=== PATIENT | male | born 1950 | race Caucasian/White ===

== ENCOUNTER 2020-08-30 15:06 | Inpatient (IN) ==
[2020-08-30] MEDS ORDERED: Ondansetron 4 MG/2 ML VIAL IVP PRN (19:57)
[2020-08-30] MEDS ORDERED: Naloxone 0.4 MG/ML INJ IVP PRN (19:57)
[2020-08-30] MEDS ORDERED: Acetaminophen 325 MG TABLET PO PRN (19:57)
[2020-08-30 20:46] LABS: Basophils # 0.1 K/mcL (0.0-0.2); Basophils % 0.5 %; Eosinophils # 0.1 K/mcL (0.0-0.6); Eosinophils % 0.5 %; Hematocrit 30.2 % (37.5-50.1); Hemoglobin 9.5 g/dL (12.9-16.9); Immature Granulocytes % 0.5 % (0-4); Lymphocytes # 1.8 K/mcL (0.6-4.6); Lymphocytes % 14.2 %; Mean Corpuscular HGB Conc 31.5 g/dL (31.6-35.5); Mean Corpuscular Hemoglobin 26.1 pg (28.0-33.3); Mean Platelet Volume 9.2 fL (9.4-12.4); Monocytes # 0.9 K/mcL (0.0-1.3); Monocytes % 6.9 %; Neutrophils # 9.9 K/mcL (1.6-8.9); Platelet Count 342 K/mcL (140-400); Red Blood Count 3.64 M/mcL (4.19-5.50); Red Cell Distribution Width 15.4 % (11.5-14.5); Segmented Neutrophils % 77.4 %; White Blood Count 12.7 K/mcL (4.3-11.1)
[2020-08-30 20:54] LABS: INR 1.8; Prothrombin Time 20.5 Seconds (9.4-12.1)
[2020-08-30 21:04] LABS: Calcium 8.1 mg/dL (8.6-10.3); Magnesium 2.1 mg/dL (1.6-2.6); Potassium 3.7 mEq/L (3.5-5.1)
[2020-08-30] MEDS: *HR* OxyCODONE Immed Rel 5 MG TABLET PO PRN (22:36)
[2020-08-30] MEDS: 0.9 % Sodium Chloride 1,000 ML IVC SCH (22:39)
[2020-08-30] MEDS: cefTRIAXone 1,000 MG in 0.9 % Sodium Chloride Mini Bag 100 ML IVPB SCH (22:55)
[2020-08-31 00:07] LABS: Adenovirus Not Detected (Not Detect); Bordetella Pertussis Not Detected (Not Detect); Chlamydophila pneumoniae Not Detected (Not Detect); Coronavirus 229E Not Detected (Not Detect); Coronavirus HKU1 Not Detected (Not Detect); Coronavirus NL63 Not Detected (Not Detect); Coronavirus OC43 Not Detected (Not Detect); Human Metapneumovirus Not Detected (Not Detect); Human Rhinovirus/Enterovirus Not Detected (Not Detect); Influenza A Subtype 2009 H1 Not Detected (Not Detect); Influenza B Not Detected (Not Detect); Mycoplasma pneumoniae Not Detected (Not Detect); Parainfluenza Virus 1 Not Detected (Not Detect); Parainfluenza Virus 2 Not Detected (Not Detect); Parainfluenza Virus 3 Not Detected (Not Detect); Parainfluenza Virus 4 Not Detected (Not Detect); Respiratory Syncytial Virus Not Detected (Not Detect); SARS-CoV-2 Not Detected (Not Detect)
[2020-08-31 00:36] LABS: Basophils # 0.1 K/mcL (0.0-0.2); Basophils % 0.4 %; Eosinophils # 0.1 K/mcL (0.0-0.6); Eosinophils % 0.9 %; Hematocrit 30.4 % (37.5-50.1); Hemoglobin 9.5 g/dL (12.9-16.9); Immature Granulocytes % 0.5 % (0-4); Lymphocytes # 1.6 K/mcL (0.6-4.6); Lymphocytes % 13.8 %; Mean Corpuscular HGB Conc 31.3 g/dL (31.6-35.5); Mean Corpuscular Hemoglobin 26.2 pg (28.0-33.3); Mean Platelet Volume 9.1 fL (9.4-12.4); Monocytes # 0.8 K/mcL (0.0-1.3); Monocytes % 6.8 %; Neutrophils # 9.1 K/mcL (1.6-8.9); Platelet Count 331 K/mcL (140-400); Red Blood Count 3.62 M/mcL (4.19-5.50); Red Cell Distribution Width 15.3 % (11.5-14.5); Segmented Neutrophils % 77.6 %; White Blood Count 11.7 K/mcL (4.3-11.1)
[2020-08-31 00:43] LABS: Calcium 8.2 mg/dL (8.6-10.3); Potassium 3.8 mEq/L (3.5-5.1)
[2020-08-31] MEDS: *HR* OxyCODONE Immed Rel 5 MG TABLET PO PRN ×2 (05:57→19:28)
[2020-08-31 06:52] LABS: Bilirubin,Urine Negative (Negative); Blood,Urine Negative (Negative); Clarity,Urine Clear (Clear); Color,Urine Yellow (Yellow); Glucose,Urine (UA) Normal (Normal); Ketones,Urine Negative (Negative); Leukocyte Esterase,Urine Negative (Negative); Mucus,Urine Few per lpf (None-Few); Nitrite,Urine Negative (Negative); Protein,Urine 70 mg/dL (Neg-Trace); RBC,Urine 0-3 per hpf (0-3); Specific Gravity,Urine 1.021 (1.010-1.025); Squamous Epithelial Cell,Urine Few per hpf (None-Few); Urobilinogen,Urine Normal (Normal); WBC,Urine 0-3 per hpf (0-3)
[2020-08-31] MEDS: cefTRIAXone 1,000 MG in 0.9 % Sodium Chloride Mini Bag 100 ML IVPB SCH (08:32)
[2020-08-31] MEDS: 0.9 % Sodium Chloride 1,000 ML IVC SCH ×2 (08:42→15:03)
[2020-08-31] MEDS ORDERED: Nicotine 14 MG PATCH.TD24 TD SCH (09:00)
[2020-08-31] MEDS ORDERED: *HR* OxyCODONE Immed Rel 5 MG TABLET PO PRN (09:17)
[2020-08-31] MEDS ORDERED: Ondansetron 4 MG/2 ML VIAL IVP PRN ×3 (11:19→14:15)
[2020-08-31] MEDS ORDERED: Ipratropium Neb 0.5 MG NEBULIZER IH PRN ×2 (11:19→14:15)
[2020-08-31] MEDS ORDERED: *HR* FentaNYL (PF) 100 MCG/2 ML VIAL IVP PRN ×2 (11:19→14:15)
[2020-08-31] MEDS ORDERED: Nitroglycerin 0.4 MG TAB.SUBL SL PRN ×2 (11:19→14:15)
[2020-08-31] MEDS ORDERED: Albuterol 2.5 MG/3 ML NEBULIZER IH PRN ×2 (11:19→14:15)
[2020-08-31] MEDS ORDERED: Naloxone 0.4 MG/ML INJ IVP PRN ×3 (11:19→14:15)
[2020-08-31] MEDS ORDERED: *HR* Propofol 200 MG/20 ML VIAL IVP ONE (11:34)
[2020-08-31] MEDS ORDERED: Lidocaine -MPF 2% 2 ML VIAL ONE (11:35)
[2020-08-31] MEDS ORDERED: *HR* Succinylcholine 200 MG/10 ML VIAL IVP ONE (11:36)
[2020-08-31] MEDS ORDERED: Isovue-300 50ML VIAL ONE (11:48)
[2020-08-31] MEDS ORDERED: EPHEDrine 50 MG/ML VIAL ONE (11:50)
[2020-08-31] MEDS ORDERED: Ipratropium/Albuterol Neb 3 ML IH SCH (12:00)
[2020-08-31] MEDS ORDERED: *HR* FentaNYL (PF) 100 MCG/2 ML VIAL ONE (12:55)
[2020-08-31] MEDS ORDERED: Acetaminophen 325 MG TABLET PO PRN (14:15)
[2020-08-31] MEDS: Ipratropium/Albuterol Neb 3 ML IH SCH ×3 (16:22→23:08)
[2020-09-01] MEDS: 0.9 % Sodium Chloride 1,000 ML IVC SCH (01:40)
[2020-09-01] MEDS: Ipratropium/Albuterol Neb 3 ML IH SCH ×5 (03:12→20:24)
[2020-09-01 06:07] LABS: Basophils % 0.1 %; Hematocrit 27.5 % (37.5-50.1); Hemoglobin 8.5 g/dL (12.9-16.9); Immature Granulocytes % 0.9 % (0-4); Lymphocytes # 0.9 K/mcL (0.6-4.6); Lymphocytes % 5.1 %; Mean Corpuscular HGB Conc 30.9 g/dL (31.6-35.5); Mean Corpuscular Hemoglobin 25.8 pg (28.0-33.3); Mean Corpuscular Volume 83.6 fL (83.0-100.0); Mean Platelet Volume 9.6 fL (9.4-12.4); Monocytes # 0.8 K/mcL (0.0-1.3); Monocytes % 4.9 %; Neutrophils # 15.1 K/mcL (1.6-8.9); Platelet Count 312 K/mcL (140-400); Red Blood Count 3.29 M/mcL (4.19-5.50); Red Cell Distribution Width 15.3 % (11.5-14.5)
[2020-09-01 06:31] LABS: Magnesium 2.1 mg/dL (1.6-2.6); Potassium 4.1 mEq/L (3.5-5.1)
[2020-09-01] MEDS: cefTRIAXone 1,000 MG in 0.9 % Sodium Chloride Mini Bag 100 ML IVPB SCH (08:32)
[2020-09-01] MEDS: Nicotine 14 MG PATCH.TD24 TD SCH (08:33)
[2020-09-01 09:30] LABS: ABG Base Excess 2 mEq/L (-2 to 3); ABG HCO3 27 mEq/L (21-27); ABG Oxygen Saturation 93 % (95-98); ABG PCO2 46 mmHg (35-45); ABG PH 7.38 pH Units (7.32-7.45); ABG PO2 69 mmHg (85-104); ABG TCO2 29 mEq/L (20-26)
[2020-09-01] MEDS ORDERED: Albuterol 2.5 MG/3 ML NEBULIZER IH SCH ×2 (11:30→15:00)
[2020-09-01] MEDS: Apixaban 5 MG TABLET PO SCH ×2 (13:10→20:17)
[2020-09-01] MEDS: Finasteride 5 MG TABLET PO SCH (13:10)
[2020-09-01] MEDS: Aspirin Enteric Coated 81 MG Tablet PO SCH (13:10)
[2020-09-01] MEDS: Pregabalin 50 MG CAPSULE PO SCH (20:18)
[2020-09-01] MEDS: Budesonide Neb 0.5 MG/2 ML IH SCH (20:24)
[2020-09-02] MEDS: Ipratropium/Albuterol Neb 3 ML IH SCH ×4 (00:11→11:14)
[2020-09-02 04:49] LABS: Basophils % 0.2 %; Eosinophils % 0.1 %; Hematocrit 24.3 % (37.5-50.1); Hemoglobin 7.8 g/dL (12.9-16.9); Immature Granulocytes % 0.7 % (0-4); Lymphocytes # 1.5 K/mcL (0.6-4.6); Lymphocytes % 9.7 %; Mean Corpuscular HGB Conc 32.1 g/dL (31.6-35.5); Mean Corpuscular Hemoglobin 26.7 pg (28.0-33.3); Mean Corpuscular Volume 83.2 fL (83.0-100.0); Mean Platelet Volume 9.7 fL (9.4-12.4); Monocytes # 0.9 K/mcL (0.0-1.3); Monocytes % 5.8 %; Neutrophils # 12.4 K/mcL (1.6-8.9); Platelet Count 328 K/mcL (140-400); Red Blood Count 2.92 M/mcL (4.19-5.50); Red Cell Distribution Width 15.3 % (11.5-14.5); Segmented Neutrophils % 83.5 %; White Blood Count 14.9 K/mcL (4.3-11.1)
[2020-09-02 05:13] LABS: Calcium 7.9 mg/dL (8.6-10.3); Magnesium 1.9 mg/dL (1.6-2.6); Phosphorous 2.3 mg/dL (2.7-4.5); Potassium 3.5 mEq/L (3.5-5.1)
[2020-09-02 05:31] LABS: Folate 4.6 ng/mL (3.0-16.0)
[2020-09-02] MEDS: Budesonide Neb 0.5 MG/2 ML IH SCH (07:29)
[2020-09-02] MEDS ORDERED: Cyanocobalamin (B-12) 1,000 MCG TABLET PO SCH (09:00)
[2020-09-02] MEDS: *HR* OxyCODONE Immed Rel 5 MG TABLET PO PRN (09:31)
[2020-09-02] MEDS: Finasteride 5 MG TABLET PO SCH (09:32)
[2020-09-02] MEDS: Aspirin Enteric Coated 81 MG Tablet PO SCH (09:32)
[2020-09-02] MEDS: Pregabalin 50 MG CAPSULE PO SCH (09:32)
[2020-09-02] MEDS: cefTRIAXone 1,000 MG in 0.9 % Sodium Chloride Mini Bag 100 ML IVPB SCH (09:34)
[2020-09-02] MEDS: Apixaban 5 MG TABLET PO SCH (09:35)
[2020-09-02] MEDS: Nicotine 14 MG PATCH.TD24 TD SCH (09:35)
[2020-09-02] MEDS ORDERED: (Revefenacin [Yupelri] 175 MCG/3 ML Vial.Neb) IH SCH (10:00)
[2020-09-02] MEDS ORDERED: (Roflumilast [Daliresp] 500 MCG Tablet) PO SCH (10:00)
[2020-09-02 11:24] LABS: Hematocrit 24.8 % (37.5-50.1); Hemoglobin 7.8 g/dL (12.9-16.9)
[2020-09-02 11:30] VITALS: BP 102/49
== END 2020-09-02 14:59 | disposition home health service (06) | DRG 659 ==
LOC: 3BNU → SUATTDRO 19:35
PROVIDERS: ADMIT Pharmacist; ATTEND Internal Medicine